=== PATIENT | female | born 1955 | race Caucasian/White ===

== ENCOUNTER → 2023-09-22 12:18 | Outpatient (REF) | payer OTHER, SELFPAY | LOC: HWRAD 12:18 | PROVIDERS: ATTENDING PHYSICIAN Nurse Practitioner Adult Health | DX: R91.1 Solitary pulmonary nodule (principal) | CPT/HCPCS: 71260; Q9967 ==

== ENCOUNTER → 2024-05-20 06:35 | Outpatient (REF) | payer OTHER, SELFPAY | LOC: MRI 3T 06:35 | PROVIDERS: ATTENDING PHYSICIAN Nurse Practitioner Adult Health; FAMILY PHYSICIAN Nurse Practitioner Adult Health | DX: M54.50 Low back pain, unspecified (principal); M54.16 Radiculopathy, lumbar region; M54.14 Radiculopathy, thoracic region | CPT/HCPCS: 72148 ==

== ENCOUNTER → 2024-09-20 13:02 | Outpatient (REF) | payer OTHER, SELFPAY | LOC: HWRAD 13:02 | PROVIDERS: ATTENDING PHYSICIAN Family Medicine | DX: M77.01 Medial epicondylitis, right elbow (principal) | CPT/HCPCS: 73070 ==

== ENCOUNTER → 2024-12-03 10:45 | Outpatient (REF) | payer OTHER, SELFPAY | LOC: PAVMRI 10:45 | PROVIDERS: ATTENDING PHYSICIAN Psychiatry & Neurology Neurology; FAMILY PHYSICIAN Nurse Practitioner Adult Health | DX: R42 Dizziness and giddiness (principal) | CPT/HCPCS: 70544; 70553; A9575 ==

== ENCOUNTER → 2025-01-16 13:07 | Outpatient (REF) | payer OTHER, SELFPAY | LOC: HWRAD 13:07 | PROVIDERS: ATTENDING PHYSICIAN Family Medicine | DX: R05.1 Acute cough (principal) | CPT/HCPCS: 71046 ==

== ENCOUNTER → 2025-05-21 13:24 | Outpatient (REF) | payer OTHER, SELFPAY | LOC: HWRAD 13:24 | PROVIDERS: ATTENDING PHYSICIAN Psychiatry & Neurology Neurology; FAMILY PHYSICIAN Nurse Practitioner Adult Health | DX: R42 Dizziness and giddiness (principal); R41.3 Other amnesia | CPT/HCPCS: 70450; 72125 ==

== ENCOUNTER 2025-05-21 19:52 | Emergency (ER) | payer OTHER, SELFPAY ==
[2025-05-21 19:55] VITALS: BP 135/85
[2025-05-21 23:14] VITALS: BMI 28.3
[2025-05-21 23:23] VITALS: BP 140/68
--- NOTE | 2025-05-21 23:25 | ED.GENMED ---
History of Present Illness
<Natacha Zaragoza PA-C - Last Filed: 05/22/25 07:48>
General
Chief Complaint: Musculo-Skeletal Complaint
Source: patient
Exam Limitations: none
Time Seen by Provider: 05/21/25 23:07
Nursing documentation reviewed up to this point in time: agreed with
History of Present Illness
History of Present Illness:
69-year-old female with a past medical history of hypertension, ACS, GERD, thyroid disease, who presents to the ER today with concerns of neck pain and upper extremity paresthesias. This has been going on for the past 4 months or so. She saw her
neurologist last week and mention the symptoms she was having who ordered a CT scan of the cervical spine and of the head. Patient reports that she has had the standing orders for a while because of the length of her symptoms but did not get the
studies done until this past week when she saw her neurologist again. The CT scan showed abnormal findings and her primary care provider told her that she needs to report to the emergency department to have her cervical spine immobilized. Of note,
patient did have a fall a week ago which she injured her nose and her jaw but she does not recall injuring her neck at this time. She feels the numbness in both of her hands and occasionally will go up higher to near the elbow. She denies any
acute worsening of the symptoms recently. She had another fall a few days ago but did not injure any injuries and again did not injure her head or neck. She denies any headaches. She denies any dizziness or lightheadedness or syncopal episodes.
She denies any trouble swallowing or shortness of breath.
Past History
<Natacha Zaragoza PA-C - Last Filed: 05/22/25 07:48>
Past History
ED Past Medical History: Cancer (Thyroid), GERD, HTN and MN
ED Past Surgical History: Gynecological (Left oophorectomy), Orthopedic, Tonsilectomy and Other (Back sugery Sep 04 2017,)
Social History
Tobacco: Non-smoker
Alcohol: Occasional (2 oz of wine)
Personal: Single
Living: alone
Review of Systems
<Natacha Zaragoza PA-C - Last Filed: 05/22/25 07:48>
Review of Systems
All Other Systems: ROS reviewed and negative except as documented in HPI and ROS
Phy Exam
<Natacha Zaragoza PA-C - Last Filed: 05/22/25 07:48>
Physical Exam
Physical Exam:
General: Patient is well appearing and in no acute distress; non-toxic
Skin: Warm and dry, no rashes or lesions
Head: Normocephalic, atraumatic
Eyes: Sclera non-icteric. EOMs intact.
Neck: No midline spinal tenderness
Cardiac: Regular rate and rhythm, no murmurs
Peripheral Vascular: No lower extremity swelling or edema
Pulm: Normal respiratory effort, no wheezes, rales, rhonchi
Musculoskeletal: No bony tenderness palpation of the upper extremities. 5 out of 5 strength in the upper extremities.
Neuro: CN II-XII intact, no focal neurologic deficits. Sensation decreased in the anterior surface of the left hand compared to the right.
Psychiatric: Appropriate mood and affect.
Course
<JORGE Espinoza Last Filed: 05/22/25 07:48>
Vital Signs
Initial and Last Documented VS:
Initial Vital Signs
Temp Pulse Resp BP Pulse Ox
98.4 F 94 16 135/85 97
05/21/25 19:55 05/21/25 19:55 05/21/25 19:55 05/21/25 19:55 05/21/25 19:55
Last Documented Vital Signs
Temp Pulse Resp BP Pulse Ox
98.4 F 74 16 140/68 99
05/21/25 19:55 05/22/25 00:26 05/22/25 00:26 05/22/25 00:26 05/22/25 00:26
<Dennis Parsons DO - Last Filed: 05/21/25 23:40>
Vital Signs
Initial and Last Documented VS:
Initial Vital Signs
Temp Pulse Resp BP Pulse Ox
98.4 F 94 16 135/85 97
05/21/25 19:55 05/21/25 19:55 05/21/25 19:55 05/21/25 19:55 05/21/25 19:55
Last Documented Vital Signs
Temp Pulse Resp BP Pulse Ox
98.4 F 74 16 140/68 99
05/21/25 19:55 05/22/25 00:26 05/22/25 00:26 05/22/25 00:26 05/22/25 00:26
<Natacha Zaragoza PA-C - Last Filed: 05/22/25 07:48>
MDM/Problems Addressed
Differential Diagnosis Includes:
cervical anterolisthesis
MDM/Problems Addressed:
69-year-old female presents to the ER today with concerns of abnormal CT scan findings on outpatient cervical CT. She was told that she needs to report to emergency department for orthopedic consult and immobilization. Her CT scan revealed 3 mm of
anterior listhesis of C3 upon C4 and this is new compared to prior plain film and MRI examinations. The most recent cervical spine MRI was in 2018. There is also noted to be partial effacement of ventral subarachnoid space. There is also
retrolisthesis at C4/C5 and an annular bulge at C5 and C6. Reviewed findings with Dr. Quigley orthopedist on-call who recommended possible transfer to Center with neurosurgery. I spoke with Dr. Sagastume, neurosurgeon slot operations manager who states that
patient is stable for outpatient follow up with neurosurgery and does not need to be transferred to have urgent flexion and extension fills. Neurosurgery also stated that patient does not need to be immobilized. Cervical collar removed. Patient
has had these symptoms for months. Discussed neurosurgical recommendation with patient. Patient will call neurosurgery as outpatient. Patient stable for discharge.
<Natacha Zaragoza PA-C - Last Filed: 05/22/25 07:48>
*Pulse Oximetry
SaO2: 99
Oxygen Mode of Delivery: Room air
Patient hypoxic: no
*Critical Care Note
Total Time (30-74mins, 75-104mins- exclusive of procedures): Not Applicable
ED Attending Note
<Natacha Zaragoza PA-C - Last Filed: 05/22/25 07:48>
-
Portions of this chart may have been created with voice recognition software.� Occasional wrong word or��sound alike� substitutions may have occurred due to the inherent limitations of voice recognition software.
<Dennis Parsons DO - Last Filed: 05/21/25 23:40>
ED Attending Note
Patient seen and examined by attending physician: Yes
I performed the substantive portion of visit, reviewed & personally made and approve the management plan that is documented in note by myself or AMAURY.: Yes
ED Attending Note:
I evaluated the patient at bedside, the patient currently is wearing a collar, she has very good strength in the upper extremities against resistance, I reviewed the CT report that was done as an outpatient from earlier today. She does have new
anterolisthesis�Will discuss with neurosurgery.
Discharge Plan
Departure
Patient Disposition: Home (Routine Discharge)
Date of Disposition: 05/22/25
Time of Disposition: 00:07
Patient with high blood pressure during this ER visit?: Yes
Condition: Good
Discharge Problem:
Anterolisthesis of cervical spine
Instructions: Neck pain, BLOOD PRESSURE
Prescriptions:
No Action
lisinopril [Zestril] 20 MG tablet
20 mg PO DAILY
ranitidine HCl [Zantac Maximum Strength] 150 MG tablet
150 mg PO DAILY
ibuprofen 400 MG tablet
400 mg PO Q6HPRN PRN (Reason: PAIN)
Patient Comments:
SOMETIMES TAKE 600 MG
hydrochlorothiazide 25 MG tablet
25 mg PO DAILY
hydrocodone-acetaminophen [Vicodin ES] 1 EACH tablet
1 ea PO DAILY
Patient Comments:
magnesium oxide 500 MG capsule
500 mg PO DAILY
Biotin
1,000 mg PO DAILY
Chromium Picolinate
200 mcg PO DAILY
Ginkgo Biloba
120 mg PO DAILY
MSM
1,000 mg PO DAILY
Mvi, Adult
1 tab PO DAILY
Neurontin:
700 mg PO TID
Selenium
100 mcg PO DAILY
Vitamin D3:
400 mg PO DAILY
zinc [Zinc Chelate] 100 MG tablet
100 mg PO DAILY
tizanidine 2 MG tablet
2 mg PO HS
sumatriptan succinate [Imitrex] 100 MG tablet
25 mg PO DAILY
lecithin 1,200 MG capsule
1,200 mg PO DAILY
cyanocobalamin (vitamin B-12) 1,000 MCG tablet
1 tab PO DAILY
sangeetha (Zingiber officinalis) [sangeetha extract] 250 MG capsule
120 mg PO DAILY
dicyclomine 10 MG capsule
10 mg PO QID
glucosamine-chondroitin [Cosamin DS] 1 EACH tablet
1 ea PO DAILY
green tea leaf extract [Green Tea] 1 CAP capsule
1 cap PO DAILY
cinnamon bark [Cinnamon] 500 MG capsule
500 mg PO DAILY
lutein 20 MG capsule
20 mg PO DAILY
turmeric 400 MG capsule
400 mg PO DAILY
Referrals:
Benjamín Sagastume DO [Active, Neurosurgery] - Call in 1-3 days for appt
Sanchez Bran DO [Family Provider]
Activity Restrictions/Additional Instructions:
Please call the attached number to follow up with neurosurgery as an outpatient.
PLEASE RETURN TO THE ER SHOULD YOU DEVELOP ANY ACUTE WORSENING OR SYMPTOMS, INABILITY MOVE UPPER EXTREMITIES, INABILITY SWALLOW, SHORTNESS OF BREATH, CHEST PAIN, DIZZINESS, LIGHTHEADEDNESS, WEAKNESS IN ONE-SIDED BODY VERSUS OTHER, INABILITY
AMBULATE, OR ANY OTHER SIGNS OR SYMPTOMS WORRISOME TO YOU.
Interventions
Interventions:
*Risk Screen - Suicide Last Done: 05/21/25 19:58
*General Assessment Last Done: 05/21/25 23:21
*Neglect/Abuse Screening Last Done: 05/21/25 19:58
*ED- Fall Risk Assessment Last Done: 05/21/25 23:24
*ED COVID-19 Vaccine History Last Done: 05/21/25 23:15
*ED Influenza Vaccine History Last Done: 05/21/25 23:16
*Nursing Disposition Last Done: 05/22/25 00:26
ED-Musculoskeletal Assessment Last Done: 05/21/25 23:18
Discharge Date and Time
Discharge Date/Time: 05/22/25 00:28
Print Language: AMHARIC
[2025-05-22 00:26] VITALS: BP 140/68
== END 2025-05-22 00:28 | disposition home or self-care (01) ==
LOC: EMR 19:52
PROVIDERS: EMERGENCY PHYSICIAN Emergency Medicine; FAMILY PHYSICIAN Family Medicine
DX: M43.12 Spondylolisthesis, cervical region (principal); I10 Essential (primary) hypertension; I24.9 Acute ischemic heart disease, unspecified; K21.9 Gastro-esophageal reflux disease without esophagitis; I25.2 Old myocardial infarction; Z85.850 Personal history of malignant neoplasm of thyroid
CPT/HCPCS: 99282

== ENCOUNTER → 2025-06-15 07:40 | Outpatient (REF) | payer OTHER, SELFPAY | LOC: PAVMRI 07:40 | PROVIDERS: ATTENDING PHYSICIAN Physician Assistant; FAMILY PHYSICIAN Nurse Practitioner Adult Health | DX: M47.12 Other spondylosis with myelopathy, cervical region (principal) | CPT/HCPCS: 72141 ==

== ENCOUNTER → 2025-07-11 10:50 | Outpatient (REF) | payer OTHER, SELFPAY | LOC: RAD 10:50 | PROVIDERS: ATTENDING PHYSICIAN Neurological Surgery; FAMILY PHYSICIAN Nurse Practitioner Adult Health | DX: G95.9 Disease of spinal cord, unspecified (principal); Z01.812 Encounter for preprocedural laboratory examination; Z79.01 Long term (current) use of anticoagulants; Z79.899 Other long term (current) drug therapy | CPT/HCPCS: 71046 ==